=== PATIENT | male | born 1975 | race Caucasian/White ===

== ENCOUNTER 2022-04-13 15:43 | Emergency (ER) | payer MEDICAID, SELFPAY ==
[2022-04-13 15:52] VITALS: BP 146/94; PULSE 102; RESP 18; TEMP 36.7; O2SAT 95; BMI 41.3
[2022-04-13 17:02] LABS: Basophils Percent Auto 0.7 % (0.0-3.0); Eosinophils Percent Auto 0.3 % (0.0-7.0); Hematocrit 41.2 % (37.0-53.0); Hemoglobin* 13.8 gm/dL (13.5-17.5); Immature Granulocytes Abs Auto 0.01 K/uL (0.00-0.30); Lymphocytes Percent Auto 44.4 % (20-44); Mean Corpuscular HGB Conc 34 gm/dL (32-36); Mean Corpuscular Hemoglobin 30 pg (26-34); Mean Corpuscular Volume 90 fL (80-100); Monocytes Percent Auto 7.3 % (0.0-11.0); Platelet Count* 70 K/uL (140-440); RDW Coefficient of Variation % 14.9 % (11.5-15.5); Red Blood Count 4.58 m/uL (4.30-5.90); White Blood Count* 2.86 K/uL (4.50-11.00)
[2022-04-13 17:16] LABS: Slide Review Reflex No
[2022-04-13 17:21] LABS: Albumin* 4.6 g/dL (3.3-5.0); Chloride* 104 mmol/L (96-114)
[2022-04-13 17:22] LABS: Potassium* 3.8 mmol/L (3.6-5.1); Sodium* 147 mmol/L (135-149)
[2022-04-13 17:24] LABS: Alkaline Phosphatase* 62 U/L (40-150); Aspartate Amino Transferase* 283 U/L (12-35); Bilirubin Direct* 0.5 mg/dL (0.0-0.5); Bilirubin Total* 1.3 mg/dL (0.1-1.5); Blood Urea Nitrogen* 11 mg/dL (5-24); Carbon Dioxide* 23 mmol/L (20-32); Creatinine* 0.6 mg/dL (0.5-1.5); Est. Creatinine Clearance* 150.56; Estimated Glomerular Filt Rate 119 ml/min; Glucose* 85 mg/dL (60-115); Total Protein* 7.5 g/dL (6.0-8.3)
[2022-04-13 17:25] LABS: Alanine Aminotransferase* 81 U/L (4-50); Calcium* 8.3 mg/dL (8.4-10.6)
[2022-04-13 17:26] LABS: Acetaminophen* < 10.0 ug/mL (10.0-30.0); Salicylate* < 1.0 mg/dL (1.0-10)
[2022-04-13] MEDS: MULTIVITAMIN/MINERALS 1 TABLET 1 TAB PO (17:28)
[2022-04-13] MEDS: THIAMINE 100 MG TABLET PO (17:29)
[2022-04-13] MEDS: FOLIC ACID 1 MG TABLET PO (17:30)
[2022-04-13] MEDS: OLANZapine 5 MG/ML inj IVP (17:30)
[2022-04-13 17:41] LABS: PCR FLU A Negative PCR FLU A (Negative); PCR FLU B Negative PCR FLU B (Negative); PCR RSV Negative PCR RSV (Negative)
[2022-04-13 17:42] LABS: Ethanol* 0.44 % (0.01-0.03)
[2022-04-13 17:46] LABS: SARS PCR* Negative SARS-CoV-2 (Negative)
--- NOTE | 2022-04-13 17:50 | ED.NURSE ---
is wanting to sleep. is arousable. father had his glasses and now they are with him in the room.
--- NOTE | 2022-04-13 18:10 | ED.ALCOHOL ---
HPI - Alcohol General Date Seen: 04/13/22 <Delonte García MD - Last Filed: 04/13/22 21:13> Chief Complaint: Alcohol/Intoxication <Delonte García MD - Last Filed: 04/13/22 21:13> Stated Complaint: ETOH <Delonte García MD - Last Filed: 04/13/22 21:13> Time Seen by Provider: 04/13/22 16:21 <Delonte García MD - Last Filed: 04/13/22 21:13> Source: patient and family <Delonte García MD - Last Filed: 04/13/22 21:13> Mode of arrival: ambulatory <Delonte García MD - Last Filed: 04/13/22 21:13> Limitations: no limitations <Delonte García MD - Last Filed: 04/13/22 21:13> History of Present Illness HPI narrative: Patient is a 39-year-old gentleman with known alcoholic disease. He presents here with his father, to get help with his alcohol, he currently drinks a L to L and half of vodka per day. He has been through treatment a number of times in the past, and been through detox, he was requesting help from his family, and they brought him in. Here he was requesting (slow detox) in which she means he can have but does not beers slowly over the course of the day. Denies any falls recently, denies any drug use, currently is unemployed, lives with his significant other. Appears intoxicated. Denies suicidal or homicidal ideation <Delonte García MD - Last Filed: 04/13/22 21:13> MD complaint: alcohol intoxication <Delonte García MD - Last Filed: 04/13/22 21:13> Last drink: hours (ago) <Delonte García MD - Last Filed: 04/13/22 21:13> Chronic alcohol use: Yes <Delonte García MD - Last Filed: 04/13/22 21:13> Previous visits for alcohol intoxication: Yes <Delonte García MD - Last Filed: 04/13/22 21:13> Recent trauma: No <Delonte García MD - Last Filed: 04/13/22 21:13> Associated symptoms: denies other symptoms <Delonte García MD - Last Filed: 04/13/22 21:13> Treatments prior to arrival: none <Delonte García MD - Last Filed: 04/13/22 21:13> Related Data Home Medications: Home Medications Medication Instructions Recorded Confirmed losartan 50 mg tablet 50 mg PO DAILY 04/13/22 04/13/22 <Delonte García MD - Last Filed: 04/13/22 21:13> Allergies/Adverse Reactions: Allergies Allergy/AdvReac Type Severity Reaction Status Date / Time No Known Drug Allergies Allergy Verified 04/13/22 16:09 <Delonte García MD - Last Filed: 04/13/22 21:13> Review of Systems Status of ROS Reports: unobtainable due to medical condition <Delonte García MD - Last Filed: 04/13/22 21:13> Narrative Patient is intoxicated but has no complaints when I go through the 10 point review systems. <Delonte García MD - Last Filed: 04/13/22 21:13> [facility] Social History: Social History Smoking Status: Current some day smoker What tobacco products do you use: cigarettes Do you use any of these nicotine containing products: None Second hand tobacco smoke exposure: Yes How often do you have a drink containing alcohol: 4 or more times a week How many standard drinks containing alcohol do you have on a typical day: 10 or more How often do you have six or more drinks on one occasion: Daily or almost daily AUDIT-C Alcohol total score: 12 Non-prescribed substance use: denies use service: No <Delonte García MD - Last Filed: 04/13/22 21:13> Exam Narrative: Exam Narrative: Patient is seen in room 2 with his father, he is lying on his left side, is pupils equal round reactive to light his TMs are normal, is neck is supple, I do not see any evidence of any trauma over his head or neck, his chest is clear bilaterally no wheezing crackles noted heart sounds are normal, his abdomen is soft and obese there is no guarding no organomegaly. he moves all extremities independently and well, slightly slurring his words. <Delonte García MD - Last Filed: 04/13/22 21:13> Const: Vital Signs, click to edit/add: Vital Signs - 24 hr 04/13/22 15:52 04/13/22 18:35 04/13/22 18:35 Temperature 98.0 F Pulse Rate [Right Pulse Oximeter] 102 H 86 Respiratory Rate 18 12 Blood Pressure [Ri ght Upper Arm] 146/94 H 142/87 H Pulse Oximetry 95 84 L 89 Oxygen Delivery Me thod Room Air Nasal Cannula Room Air 04/13/22 19:00 04/14/22 01:44 04/14/22 03:30 Temperature Pulse Rate [Right Pulse Oximeter] 61 Respiratory Rate Blood Pressure [Ri ght Upper Arm] 132/87 Pulse Oximetry 96 94 94 Oxygen Delivery Me thod Nasal Cannula Room Air 04/14/22 05:32 Temperature Pulse Rate [Right Pulse Oximeter] 83 Respiratory Rate 20 Blood Pressure [Ri ght Upper Arm] 161/82 H Pulse Oximetry 95 Oxygen Delivery Me thod <Delonte García MD - Last Filed: 04/13/22 21:13> Vital Signs, click to edit/add: Vital Signs - 24 hr 04/13/22 15:52 04/13/22 18:35 04/13/22 18:35 Temperature 98.0 F Pulse Rate [Right Pulse Oximeter] 102 H 86 Respiratory Rate 18 12 Blood Pressure [Ri ght Upper Arm] 146/94 H 142/87 H Pulse Oximetry 95 84 L 89 Oxygen Delivery Me thod Room Air Nasal Cannula Room Air 04/13/22 19:00 04/14/22 01:44 04/14/22 03:30 Temperature Pulse Rate [Right Pulse Oximeter] 61 Respiratory Rate Blood Pressure [Ri ght Upper Arm] 132/87 Pulse Oximetry 96 94 94 Oxygen Delivery Me thod Nasal Cannula Room Air 04/14/22 05:32 Temperature Pulse Rate [Right Pulse Oximeter] 83 Respiratory Rate 20 Blood Pressure [Ri ght Upper Arm] 161/82 H Pulse Oximetry 95 Oxygen Delivery Me thod <Yaquelin Godwin MD - Last Filed: 04/14/22 07:47> Documenting provider has reviewed patient's vital signs: yes <Delonte García MD - Last Filed: 04/13/22 21:13> Common normals: no apparent distress <Delonte García MD - Last Filed: 04/13/22 21:13> General appearance: cooperative and comfortable <Delonte García MD - Last Filed: 04/13/22 21:13> Nutritional appearance: obese <Delonte García MD - Last Filed: 04/13/22 21:13> Orientation/consciousness: Yes awake, Yes oriented to person, Yes oriented to place and Yes oriented to time <Delonte García MD - Last Filed: 04/13/22 21:13> HENMT: Common normals: normocephalic, head/scalp atraumatic, hearing grossly normal bilaterally, external ears normal, EAC's normal, TM's normal bilaterally, external nose normal, nasal mucous membranes and turbinates normal, moist oral mucous membranes and oropharynx normal <Delonte García MD - Last Filed: 04/13/22 21:13> Head and scalp: normocephalic and atraumatic <Delonte García MD - Last Filed: 04/13/22 21:13> Nose: external nose normal and nasal mucous membranes and turbinates normal <Delonte García MD - Last Filed: 04/13/22 21:13> External ear: external ears normal <Delonte García MD - Last Filed: 04/13/22 21:13> External auditory canal: EAC's normal <Delonte García MD - Last Filed: 04/13/22 21:13> Tympanic membrane: TM's normal bilaterally <Delonte García MD - Last Filed: 04/13/22 21:13> Eye: Common normals: PERRL, EOMs intact bilaterally, conjunctivae normal, no scleral icterus, no papilledema, normal visual wilkes by confrontation and fundi normal bilaterally <Delonte García MD - Last Filed: 04/13/22 21:13> General eye: normal appearance of both eyes <Delonte García MD - Last Filed: 04/13/22 21:13> Conjunctiva: conjunctiva(e) normal <Delonte García MD - Last Filed: 04/13/22 21:13> Pupil: PERRL <Delonte García MD - Last Filed: 04/13/22 21:13> Direct Ophthalmoscopy: no papilledema and fundi normal bilaterally <Delonte García MD - Last Filed: 04/13/22 21:13> Neck & C-Spine: Common normals: full ROM, no lymphadenopathy, supple, no meningeal signs, no JVD and thyroid normal <Delonte García MD - Last Filed: 04/13/22 21:13> General: normal visual inspection and trachea midline <Delonte García MD - Last Filed: 04/13/22 21:13> Thyroid: thyroid normal <Delonte García MD - Last Filed: 04/13/22 21:13> Lymph: Lymphatic: no lymphadenopathy noted and no lymphedema noted <Delonte García MD - Last Filed: 04/13/22 21:13> Chest: Common normals: inspection of chest normal and palpation of chest normal <Delonte García MD - Last Filed: 04/13/22 21:13> Resp: Common normals: normal respiratory effort, no retractions, no use of accessory muscles, clear to auscultation bilaterally and percussion normal <Delonte García MD - Last Filed: 04/13/22 21:13> Effort & inspection: able to speak in complete sentences <Delonte García MD - Last Filed: 04/13/22 21:13> Auscultation: clear to auscultation bilaterally <Delonte García MD - Last Filed: 04/13/22 21:13> Percussion: percussion normal <Delonte García MD - Last Filed: 04/13/22 21:13> Cardio: Common normals: no JVD <Delonte García MD - Last Filed: 04/13/22 21:13> GI: Common normals: Normal to inspection, nondistended, normoactive bowel sounds present, soft to palpation, non-tender, no hepatosplenomegaly, no masses and no bruits <Delonte García MD - Last Filed: 04/13/22 21:13> Inspection: normal to inspection <Delonte García MD - Last Filed: 04/13/22 21:13> Palpation: soft and no hepatosplenomegaly <Delonte García MD - Last Filed: 04/13/22 21:13> : Common normals: no CVA tenderness <Delonte García MD - Last Filed: 04/13/22 21:13> Bladder/kidney exam: no CVA tenderness <Delonte García MD - Last Filed: 04/13/22 21:13> Back & Pelvis: Common normals: no CVA tenderness, thoracic and lumbar spine normal to inspection, no thoracic nor lumbar tenderness, thoraco-lumbar ROM normal and straight leg raise negative bilaterally <Delonte García MD - Last Filed: 04/13/22 21:13> Extremity: Common normals: normal to inspection, full ROM, normal capillary refill, no joint enlargement, no clubbing, cyanosis or edema, no calf tenderness and no pedal edema <Delonte García MD - Last Filed: 04/13/22 21:13> General: normal exam except as noted <Delonte García MD - Last Filed: 04/13/22 21:13> Neuro: Sensorium/orientation: awake, oriented to person, oriented to place and oriented to time <Delonte García MD - Last Filed: 04/13/22 21:13> Meningeal signs: no meningeal signs <Delonte García MD - Last Filed: 04/13/22 21:13> Course Course Hospital Course: Patient has been sleeping, he received the Zyprexa because he was the uncooperative. His blood alcohol is elevated, he will need to sleep this off, before we can make a formal assessment of this. I would suspect that as I come back and 11 hours to work as shift he will be here. And then I will take over care at that point. I have communicated this with the ER physician currently here. <Delonte García MD - Last Filed: 04/13/22 21:13> Vital Signs Vital signs: Initial Vital Signs Temperature 98.0 F 04/13/22 15:52 Temperature Source Temporal Artery Scan 04/13/22 15:52 Pulse Rate 102 H 04/13/22 15:52 Respiratory Rate 18 04/13/22 15:52 Blood Pressure 146/94 H 04/13/22 15:52 Blood Pressure Mean 111 04/13/22 15:52 Blood Pressure Position Sitting 04/13/22 15:52 Pulse Oximetry 95 04/13/22 15:52 Oxygen Delivery Method 04/13/22 15:52 Vital Signs Temperature 98.0 F 04/13/22 15:52 Pulse Rate 102 H 04/13/22 15:52 Respiratory Rate 18 04/13/22 15:52 Blood Pressure 146/94 H 04/13/22 15:52 Pulse Oximetry 95 04/13/22 15:52 Oxygen Delivery Method 04/13/22 15:52 Temperature 98.0 F 04/13/22 15:52 Pulse Rate 83 04/14/22 05:32 Respiratory Rate 20 04/14/22 05:32 Blood Pressure 161/82 H 04/14/22 05:32 Pulse Oximetry 95 04/14/22 05:32 Oxygen Delivery Method 04/14/22 03:30 <Delonte García MD - Last Filed: 04/13/22 21:13> Initial Vital Signs Temperature 98.0 F 04/13/22 15:52 Temperature Source Temporal Artery Scan 04/13/22 15:52 Pulse Rate 102 H 04/13/22 15:52 Respiratory Rate 18 04/13/22 15:52 Blood Pressure 146/94 H 04/13/22 15:52 Blood Pressure Mean 111 04/13/22 15:52 Blood Pressure Position Sitting 04/13/22 15:52 Pulse Oximetry 95 04/13/22 15:52 Oxygen Delivery Method 04/13/22 15:52 Vital Signs Temperature 98.0 F 04/13/22 15:52 Pulse Rate 102 H 04/13/22 15:52 Respiratory Rate 18 04/13/22 15:52 Blood Pressure 146/94 H 04/13/22 15:52 Pulse Oximetry 95 04/13/22 15:52 Oxygen Delivery Method 04/13/22 15:52 Temperature 98.0 F 04/13/22 15:52 Pulse Rate 83 04/14/22 05:32 Respiratory Rate 20 04/14/22 05:32 Blood Pressure 161/82 H 04/14/22 05:32 Pulse Oximetry 95 04/14/22 05:32 Oxygen Delivery Method 04/14/22 03:30 <Yaquelin Godwin MD - Last Filed: 04/14/22 07:47> MDM - Alcohol MDM Narrative Medical decision making narrative: Patient is seen and assessed, his vital signs are stable, but he is significantly intoxicated with a blood alcohol 0.44, he would be a great candidate for detox, but his blood alcohol will need to come down, we will contact the detox is in the area, at this point he will be on transport hold for sure, pending a 72 hour hold given his history of alcoholic issues. He is not suicidal nor is he homicidal, but given his poor insight into his problem, I do not think he can make his own decisions for himself. <Delonte García MD - Last Filed: 04/13/22 21:13> Patient is seen and assessed, his vital signs are stable, but he is significantly intoxicated with a blood alcohol 0.44, he would be a great candidate for detox, but his blood alcohol will need to come down, we will contact the detox is in the area, at this point he will be on transport hold for sure, pending a 72 hour hold given his history of alcoholic issues. He is not suicidal nor is he homicidal, but given his poor insight into his problem, I do not think he can make his own decisions for himself. Update 545 a.m. 04/14: Patient is awake gets up and walks to the bathroom, he is somewhat shaky but no longer intoxicated. He and I discussed options. At this time he is refusing to go to detox of any kind, declined my recommendation to do so. He denies suicidality now that he is sober. When I ask about his alcohol cessation plans, he states that he will be rejoining AA and has had this times of sobriety in the past. He declines assistance in arranging any of these options. I do give him 1 mg of oral Ativan, confirmed with him that he has no history of seizures with alcohol cessation but has gotten shaky in the past. He asks about a prescription of Ativan to have at home and I declined to do so due to the fact that he has had multiple relapses and is likely to continue drinking alcohol while on the Ativan. I discussed my reasoning and so I will only do this in a medically monitored setting. He verbalizes understanding and agreement. I again offered detox or similar treatment and he declines. I let him know that there is nothing further than we would do in the emergency department since he is no longer intoxicated and he does not wish for any further assistance. He will be discharged. Dr. Godwin <Yaquelin Godwin MD - Last Filed: 04/14/22 07:47> Medical Records Attestation: I reviewed the patient's medical records. <Yaquelin Godwin MD - Last Filed: 04/14/22 07:47> Lab Data Attestation: I reviewed the patient's lab results. <Delonte García MD - Last Filed: 04/13/22 21:13> Labs: Lab Results 04/13/22 04/13/22 04/13/22 Range/Units 16:50 16:50 16:50 WBC 2.86 L (4.50-11.00) K/uL RBC 4.58 (4.30-5.90) m/uL Hgb 13.8 (13.5-17.5) gm/dL Hct 41.2 (37.0-53.0) % MCV 90 (80-100) fL MCH 30 (26-34) pg MCHC 34 (32-36) gm/dL RDW Coeff of Patricia 14.9 (11.5-15.5) % Plt Count 70 L (140-440) K/uL Neut % (Auto) 47.0 (42.0-72.0) % Lymph % (Auto) 44.4 H (20-44) % Preble % (Auto) 7.3 (0.0-11.0) % Eos % (Auto) 0.3 (0.0-7.0) % Baso % (Auto) 0.7 (0.0-3.0) % Neut # (Auto) 1.30 L (1.7-7.0) K/uL Lymph # (Auto) 1.30 (0.90-2.90) K/uL Preble # (Auto) 0.20 (0.00-0.90) K/UL Eos # (Auto) 0.00 (0.00-0.50) K/uL Baso # (Auto) 0.00 (0.00-0.30) K/uL Abs Immat Gran (auto) 0.01 (0.00-0.30) K/uL Sodium 147 (135-149) mmol/L Potassium 3.8 (3.6-5.1) mmol/L Chloride 104 (96-114) mmol/L Carbon Dioxide 23 (20-32) mmol/L BUN 11 (5-24) mg/dL Creatinine 0.6 (0.5-1.5) mg/dL Estimated Creat Clear 150.56 Estimated GFR 119 ml/min Glucose 85 (60-115) mg/dL Calcium 8.3 L (8.4-10.6) mg/dL Magnesium 1.6 (1.5-2.6) mg/dL Total Bilirubin 1.3 (0.1-1.5) mg/dL Direct Bilirubin 0.5 (0.0-0.5) mg/dL AST 283 H (12-35) U/L ALT 81 H (4-50) U/L Alkaline Phosphatase 62 (40-150) U/L Total Protein 7.5 (6.0-8.3) g/dL Albumin 4.6 (3.3-5.0) g/dL Salicylates < 1.0 L (1.0-10) mg/dL Acetaminophen < 10.0 L (10.0-30.0) ug/mL Ethyl Alcohol 0.44 H* (0.01-0.03) % SARS-CoV-2 (PCR) Negative SARS-CoV-2 (Negative) Influenza Type A (PCR) Negative PCR FLU A (Negative) Influenza Type B (PCR) Negative PCR FLU B (Negative) RSV (PCR) Negative PCR RSV (Negative) <Delonte García MD - Last Filed: 04/13/22 21:13> Lab Results 04/13/22 04/13/22 04/13/22 Range/Units 16:50 16:50 16:50 WBC 2.86 L (4.50-11.00) K/uL RBC 4.58 (4.30-5.90) m/uL Hgb 13.8 (13.5-17.5) gm/dL Hct 41.2 (37.0-53.0) % MCV 90 (80-100) fL MCH 30 (26-34) pg MCHC 34 (32-36) gm/dL RDW Coeff of Patricia 14.9 (11.5-15.5) % Plt Count 70 L (140-440) K/uL Neut % (Auto) 47.0 (42.0-72.0) % Lymph % (Auto) 44.4 H (20-44) % Preble % (Auto) 7.3 (0.0-11.0) % Eos % (Auto) 0.3 (0.0-7.0) % Baso % (Auto) 0.7 (0.0-3.0) % Neut # (Auto) 1.30 L (1.7-7.0) K/uL Lymph # (Auto) 1.30 (0.90-2.90) K/uL Preble # (Auto) 0.20 (0.00-0.90) K/UL Eos # (Auto) 0.00 (0.00-0.50) K/uL Baso # (Auto) 0.00 (0.00-0.30) K/uL Abs Immat Gran (auto) 0.01 (0.00-0.30) K/uL Sodium 147 (135-149) mmol/L Potassium 3.8 (3.6-5.1) mmol/L Chloride 104 (96-114) mmol/L Carbon Dioxide 23 (20-32) mmol/L BUN 11 (5-24) mg/dL Creatinine 0.6 (0.5-1.5) mg/dL Estimated Creat Clear 150.56 Estimated GFR 119 ml/min Glucose 85 (60-115) mg/dL Calcium 8.3 L (8.4-10.6) mg/dL Magnesium 1.6 (1.5-2.6) mg/dL Total Bilirubin 1.3 (0.1-1.5) mg/dL Direct Bilirubin 0.5 (0.0-0.5) mg/dL AST 283 H (12-35) U/L ALT 81 H (4-50) U/L Alkaline Phosphatase 62 (40-150) U/L Total Protein 7.5 (6.0-8.3) g/dL Albumin 4.6 (3.3-5.0) g/dL Salicylates < 1.0 L (1.0-10) mg/dL Acetaminophen < 10.0 L (10.0-30.0) ug/mL Ethyl Alcohol 0.44 H* (0.01-0.03) % SARS-CoV-2 (PCR) Negative SARS-CoV-2 (Negative) Influenza Type A (PCR) Negative PCR FLU A (Negative) Influenza Type B (PCR) Negative PCR FLU B (Negative) RSV (PCR) Negative PCR RSV (Negative) <Yaquelin Godwin MD - Last Filed: 04/14/22 07:47> Discharge Plan Discharge Clinical Impression: Alcoholic intoxication <Delonte García MD - Last Filed: 04/13/22 21:13> Patient Disposition: Xfer Other <Delonte García MD - Last Filed: 04/13/22 21:13> Condition: Stable <Delonte García MD - Last Filed: 04/13/22 21:13> Instructions: Alcohol Intoxication (ED), Abuse of Alcohol (DC), At-Risk Alcohol Use (ED) <Delonte García MD - Last Filed: 04/13/22 21:13> Additional Instructions: At this time, your refusing to go to detox which is your right. You are no longer severely intoxicated and therefore can make that decision. I think it is a poor decision. As we discussed, I cannot offer Ativan to use at home because of your heavy alcohol use. I can only offer controlled substances like that to people in medically monitored settings such as hospitals, detox or emergency rooms. I have given you a dose of Ativan prior to discharge. You have let me know that you do not intend to drink at home. You have told me that you intent to set appear own alcohol treatment arrangements and do not request my help with further assistance in this. See Handout for numbers to call for detox or crisis center. <Delonte García MD - Last Filed: 04/13/22 21:13> Activity Level: No Restrictions <Delonte García MD - Last Filed: 04/13/22 21:13> No Restrictions <Yaquelin Godwin MD - Last Filed: 04/14/22 07:47> Discharge Diet: Regular <Delonte García MD - Last Filed: 04/13/22 21:13> Regular <Yaquelin Godwin MD - Last Filed: 04/14/22 07:47> Prescriptions: No Action losartan 50 mg tablet 50 mg PO DAILY Label Comments: TAKE ONE TABLET BY MOUTH EVERY DAY <Delonte García MD - Last Filed: 04/13/22 21:13> Stand Alone Forms: [facility] Info Instructions <Delonte García MD - Last Filed: 04/13/22 21:13>
[2022-04-13 18:35] VITALS: BP 142/87; PULSE 86; RESP 12; O2SAT 84; O2SAT 89
--- NOTE | 2022-04-13 18:53 | ED.NURSE ---
has been resting after zyprex 5 mg. does take off monitors-id band, pulse ox, 02. is hard to keep 02 on. sats increased to over 93% with the 02.
[2022-04-13 19:00] VITALS: BP 132/87; PULSE 61; O2SAT 96
[2022-04-13 19:08] LABS: Magnesium* 1.6 mg/dL (1.5-2.6)
[2022-04-14 01:44] VITALS: O2SAT 94
[2022-04-14 03:30] VITALS: O2SAT 94
[2022-04-14] MEDS: LORazepam 1 MG TABLET PO (05:29)
[2022-04-14 05:32] VITALS: BP 161/82; PULSE 83; RESP 20; O2SAT 95
--- NOTE | 2022-04-14 05:34 | ED.NURSE ---
0510, pt woke up, wanted to go to the restroom. Pt shaking, requesting help with skakes. pt taken to restroom via wheelchair. MD informed of pt shaking and possible DTs.
== END 2022-04-14 08:02 | disposition other institution (70) ==
PROVIDERS: Emergency Provider Family Medicine; PCP Family Medicine
DX: F10.129 Alcohol abuse with intoxication, unspecified (principal); F17.210 Nicotine dependence, cigarettes, uncomplicated; Z20.822 Contact with and (suspected) exposure to COVID-19; Y90.8 Blood alcohol level of 240 mg/100 ml or more
CPT/HCPCS: 36415; 80048; 80076; 80143; 80179; 82077; 83735; 85025; 87502; 87634; 87635; 94761; 96374; 99285; A9153; A9270; S0166

== ENCOUNTER 2023-03-23 12:54 | Emergency (ER) | payer MEDICAID, SELFPAY ==
[2023-03-23] VITALS (13 sets, daily range): BP systolic 142–162; BP diastolic 96–112; PULSE 53–58; RESP 18; TEMP 36.1; O2SAT 96–100; BMI 33.6
[2023-03-23] MEDS: 0.9 % SODIUM CHLORIDE 1000 ml 1,000 ML IV (14:08)
[2023-03-23] MEDS: hydrOXYzine pamoate 25 MG CAPSULE PO (14:08)
[2023-03-23 14:10] LABS: Basophils Absolute Auto 0.04 K/uL (0.00-0.30); Basophils Percent Auto 0.5 % (0.0-3.0); Eosinophils Absolute Auto 0.03 K/uL (0.00-0.50); Eosinophils Percent Auto 0.4 % (0.0-7.0); Hematocrit 42.8 % (37.0-53.0); Hemoglobin* 14.5 gm/dL (13.5-17.5); Immature Granulocytes Abs Auto 0.01 K/uL (0.00-0.30); Immature Granulocytes Pct Auto 0.1 %; Lymphocytes Percent Auto 31.1 % (20-44); Mean Corpuscular HGB Conc 34 gm/dL (32-36); Mean Corpuscular Hemoglobin 31 pg (26-34); Mean Corpuscular Volume 92 fL (80-100); Monocytes Percent Auto 7.1 % (0.0-11.0); Neutrophils Absolute Auto 4.88 K/uL (1.7-7.0); Neutrophils Percent Auto 60.8 % (42.0-72.0); Platelet Count* 204 K/uL (140-440); RDW Coefficient of Variation % 12.6 % (11.5-15.5); Red Blood Count 4.66 m/uL (4.30-5.90); White Blood Count* 8.03 K/uL (4.50-11.00)
[2023-03-23 14:17] LABS: Slide Review Reflex No
[2023-03-23 14:31] LABS: Albumin* 4.5 g/dL (3.3-5.0); Chloride* 105 mmol/L (96-114)
[2023-03-23 14:32] LABS: Potassium* 4.1 mmol/L (3.6-5.1); Sodium* 140 mmol/L (135-149)
[2023-03-23 14:34] LABS: Alanine Aminotransferase* 17 U/L (4-50); Alkaline Phosphatase* 42 U/L (40-150); Anion Gap 7 mEq/L (7-15); Aspartate Amino Transferase* 26 U/L (12-35); Bilirubin Total* 0.8 mg/dL (0.1-1.5); Blood Urea Nitrogen* 7 mg/dL (5-24); Carbon Dioxide* 28 mmol/L (20-32); Creatinine* 0.7 mg/dL (0.5-1.5); Est. Creatinine Clearance* 145.85; Estimated Glomerular Filt Rate 114 ml/min; Glucose* 92 mg/dL (60-115)
[2023-03-23 14:35] LABS: Calcium* 9.9 mg/dL (8.4-10.6); Magnesium* 1.8 mg/dL (1.5-2.6)
[2023-03-23 14:53] LABS: Ethanol* < 0.01 % (0.01-0.03)
[2023-03-23] MEDS: LOSARTAN POTASSIUM 50 MG TABLET PO (15:45)
--- NOTE | 2023-03-23 17:19 | ED.GENADULT ---
HPI - General Adult General Chief complaint: Chest Pain Stated complaint: chest pain Time Seen by Provider: 03/23/23 13:16 History of Present Illness HPI narrative: This is a pleasant 47-year-old gentleman who presents to the ER today with concern for hypertension, palpitations, chest tightness, hand tingling. He has a past medical history including hypertension. He supposed to be on losartan 50 mg per day. However his been off for his blood pressure medication for about the past 2 weeks due to legal and social problems. [facility] and then [facility] to a alcohol treatment program. He has not had access to his blood pressure medication during that time frame. He has been in his treatment program for a week. In terms of alcohol he does have a history of heavy alcohol use but actually has been working hard to maintain sobriety for the past several months. He has not had a episode of heavy alcohol intake in quite a few months. He has consumed alcohol on 3 days out of the past 6 weeks. Last drink was a few weeks ago. He was arrested because it was a condition of his probation to abstain entirely from alcohol. He has been in alcohol treatment for the past week. He has been experiencing fairly continuous tightness in the center, upper portion of his chest over that time. He has also had some tingling in both of his hands. He also notes that when he feels his pulse at his neck he feels skipping beats a few times a minute. When he is not palpating his pulse he is not able to feel the extra beats. He has not had any cleared dizzy spells. No fainting. He does not have any pleuritic pain. He is not short of breath. No cough. No fever. No abdominal pain. No vomiting. No shakes or tremor. No hallucinations or withdrawal symptoms. No swelling in his legs. No recent surgery. He has hypertension. He is not aware of any other cardiac risk factors. No diabetes, hyperlipidemia. No previous history of coronary disease or stents. Because of his symptoms and his high blood pressure he was referred here to the ER for evaluation. Related Data Home Medications Medication Instructions Recorded Confirmed losartan 50 mg tablet 50 mg PO DAILY 04/13/22 05/07/22 Previous Rx's Medication Instructions Recorded losartan 50 mg tablet 50 mg PO DAILY #30 tabs 03/23/23 losartan 50 mg tablet 50 mg PO DAILY #30 tabs 03/23/23 Allergies Allergy/AdvReac Type Severity Reaction Status Date / Time No Known Drug Allergies Allergy Verified 05/07/22 15:57 [facility] Social History Smoking Status: Light tobacco smoker What tobacco products do you use: cigarettes Do you use any of these nicotine containing products: None Second hand tobacco smoke exposure: Yes Non-prescribed substance use: denies use service: No Exam Narrative: Exam Narrative: Constitutional: Appears well-developed and well-nourished. Alert. Conversant. Mildly anxious. Non toxic. HENT: Head: Atraumatic. Nose: Nose normal. Mouth/Throat: Oral mucosa is clear and moist. no trismus. Pharynx normal. Tonsils symmetric. No tonsillar enlargement, erythema, or exudate. Eyes: Conjunctivae normal. EOM normal. Pupils equal, round, and reactive to light. No scleral icterus. Neck: Normal range of motion. Neck supple. No tracheal deviation present. Cardiovascular: Bradycardic, rate in the 50s, regular rhythm. No gallop. No friction rub. No murmur heard. Symmetric radial and DP artery pulses . No JVD. He has occasional PVCs on the monitor, a few times per minute. Pulmonary/Chest: Effort normal. No stridor. No respiratory distress. No wheezes. No rales. No rhonchi . No tenderness. Abdominal: Soft. Bowel sounds normal. No distension. No mass. No tenderness. No rebound. No guarding. Musculoskeletal: RUE: Normal range of motion. No tenderness. No deformity LUE: Normal range of motion. No tenderness. No deformity RLE: Normal range of motion. No edema. No tenderness. No deformity LLE: Normal range of motion. No edema. No tenderness. No deformity Lymph: No cervical adenopathy. Neurological: Alert and oriented to person, place, and time. Normal strength. CN II-VII intact. No sensory deficit. GCS eye subscore is 4. GCS verbal subscore is 5. GCS motor subscore is 6. Normal coordination Skin: Skin is warm and dry. No rash noted. No pallor. Normal capillary refill. Psychiatric: Normal mood. Anxious. Endorses stressors including recent [facility] violation leading to [facility], now in alcohol treatment. He does have a history of anxiety/insomnia for which he uses p.r.n. hydroxyzine. He does not use that every night. Const: Vital Signs, click to edit/add: Vital Signs - 24 hr 03/23/23 13:06 03/23/23 13:07 03/23/23 13:08 Temperature 96.9 F L Pulse Rate 53 L 55 L Pulse Rate [Right Pulse Oximeter] 53 L Respiratory Rate 18 Blood Pressure 143/96 H Blood Pressure [Ri ght Upper Arm] 143/96 H Pulse Oximetry 96 96 96 Oxygen Delivery Me thod Room Air 03/23/23 13:15 03/23/23 13:30 03/23/23 13:32 Temperature Pulse Rate 58 L 55 L 55 L Pulse Rate [Right Pulse Oximeter] Respiratory Rate Blood Pressure 142/100 H Blood Pressure [Ri ght Upper Arm] Pulse Oximetry 98 99 97 Oxygen Delivery Me thod 03/23/23 13:45 03/23/23 14:00 03/23/23 14:02 Temperature Pulse Rate 56 L 55 L 53 L Pulse Rate [Right Pulse Oximeter] Respiratory Rate Blood Pressure 154/104 H Blood Pressure [Ri ght Upper Arm] Pulse Oximetry 98 100 99 Oxygen Delivery Me thod 03/23/23 14:15 03/23/23 14:30 03/23/23 14:32 Temperature Pulse Rate 55 L 53 L 56 L Pulse Rate [Right Pulse Oximeter] Respiratory Rate Blood Pressure 162/112 H Blood Pressure [Ri ght Upper Arm] Pulse Oximetry 98 97 99 Oxygen Delivery Me thod 03/23/23 14:45 Temperature Pulse Rate 54 L Pulse Rate [Right Pulse Oximeter] Respiratory Rate Blood Pressure Blood Pressure [Ri ght Upper Arm] Pulse Oximetry 98 Oxygen Delivery Me thod Course Vital Signs Vital signs: Initial Vital Signs Temperature 96.9 F L 03/23/23 13:06 Temperature Source Temporal Artery Scan 03/23/23 13:06 Pulse Rate 53 L 03/23/23 13:06 Respiratory Rate 18 03/23/23 13:06 Blood Pressure 143/96 H 03/23/23 13:06 Blood Pressure Mean 111 H 03/23/23 13:06 Blood Pressure Position Sitting 03/23/23 13:06 Pulse Oximetry 96 03/23/23 13:06 Oxygen Delivery Method Room Air 03/23/23 13:06 Vital Signs Temperature 96.9 F L 03/23/23 13:06 Pulse Rate 53 L 03/23/23 13:06 Respiratory Rate 18 03/23/23 13:06 Blood Pressure 143/96 H 03/23/23 13:06 Pulse Oximetry 96 03/23/23 13:06 Oxygen Delivery Method Room Air 03/23/23 13:06 Temperature 96.9 F L 03/23/23 13:06 Pulse Rate 54 L 03/23/23 14:45 Respiratory Rate 18 03/23/23 13:06 Blood Pressure 162/112 H 03/23/23 14:32 Pulse Oximetry 98 03/23/23 14:45 Oxygen Delivery Method Room Air 03/23/23 13:06 Medical Decision Making MDM Narrative Medical decision making narrative: This patient presents to the ER today for evaluation of chest pain this been continuing for the past week or so, also feeling palpitations from time to time, also tingling in his hands. Also concerned that his blood pressure is elevated and he does not have access to his blood pressure medications in his current alcohol treatment program. He needs a prescription from a doctor to get his blood pressure med.. Differential was broad. No evidence of palpitations, syncope or other cardiac dysrhythmia. We considered possible ACS, however workup with EKG and troponin is negative. HEART score is 2. Given time since onset of symptoms, I do not think the patient needs to be admitted for further sets of enzymes. EKG shows no evidence for pericarditis. Clinical presentation not suggestive of myocarditis. Lung sounds are clear. No wheezing or bronchospasm. No exam findings to suggest pneumonia, pneumothorax, pleural effusion. No evidence for rales to suggest pulmonary edema. The patient has no ripping or tearing pain through to the back and has symmetric pulses on exam, no other acute neuro findings so I doubt aortic dissection. Risk of radiation and contrast exposure would outweigh the benefit of CT angiogram. We considered PE for this patient. Overall very low risk with bradycardia, normal oxygen sat. Low risk by PERC. No wheezing or bronchospasm to suggest COPD/asthma. No signs of chest wall cellulitis, shingles, injury. He is also concerned about elevated blood pressure. There is a history of hypertension in the past. No concerning symptoms of chest pain , severe headache, neurologic deficits. The workup here is negative and the patient does not have any clinical, laboratory, ecg or historical signs of end-organ dysfunction. There is no signs of hypertensive emergency or urgency. Supportive outpatient management is therefore indicated with close follow-up of primary care physician. Given data obtained here in ED, started back on losartan 50 mg daily (his previous med) for therapy at this time and encouraged serial blood pressure monitoring at home to aid primary in decision making regarding hypertension. With reasonable clinical confidence, I think the patient is safe for outpatient follow up. Discussed return precautions. Questions answered. Patient voices comfort with the plan. Lab Data Labs: Lab Results 03/23/23 Range/Units 13:10 WBC 8.03 (4.50-11.00) K/uL RBC 4.66 (4.30-5.90) m/uL Hgb 14.5 (13.5-17.5) gm/dL Hct 42.8 (37.0-53.0) % MCV 92 (80-100) fL MCH 31 (26-34) pg MCHC 34 (32-36) gm/dL RDW Coeff of Patricia 12.6 (11.5-15.5) % Plt Count 204 (140-440) K/uL Neut % (Auto) 60.8 (42.0-72.0) % Lymph % (Auto) 31.1 (20-44) % [place] % (Auto) 7.1 (0.0-11.0) % Eos % (Auto) 0.4 (0.0-7.0) % Baso % (Auto) 0.5 (0.0-3.0) % Neut # (Auto) 4.88 (1.7-7.0) K/uL Lymph # (Auto) 2.50 (0.90-2.90) K/uL [place] # (Auto) 0.60 (0.00-0.90) K/UL Eos # (Auto) 0.03 (0.00-0.50) K/uL Baso # (Auto) 0.04 (0.00-0.30) K/uL Abs Immat Gran (auto) 0.01 (0.00-0.30) K/uL Imm/Tot Granulo (auto) 0.1 % Sodium 140 (135-149) mmol/L Potassium 4.1 (3.6-5.1) mmol/L Chloride 105 (96-114) mmol/L Carbon Dioxide 28 (20-32) mmol/L Anion Gap 7 (7-15) mEq/L BUN 7 (5-24) mg/dL Creatinine 0.7 (0.5-1.5) mg/dL Estimated Creat Clear 145.85 Estimated GFR 114 ml/min Glucose 92 (60-115) mg/dL Calcium 9.9 (8.4-10.6) mg/dL Magnesium 1.8 (1.5-2.6) mg/dL Total Bilirubin 0.8 (0.1-1.5) mg/dL AST 26 (12-35) U/L ALT 17 (4-50) U/L Alkaline Phosphatase 42 (40-150) U/L Total Protein 8.0 (6.0-8.3) g/dL Albumin 4.5 (3.3-5.0) g/dL Ethyl Alcohol < 0.01 L (0.01-0.03) % POC Troponin I 0.00 L (0.01-0.04) ng/ml ECG Data Attestation: I personally reviewed and interpreted this ECG as follows: Interpretation: Sinus bradycardia . Rate 51 ME 136 QRS axis normal axis. No pathologic Q-waves. ST segment/T wave: No ST segment elevation or depression. QTc: 420 Discharge Plan Discharge Clinical Impression: Frequent PVCs, Atypical chest pain Patient Disposition: Home, Self-Care Condition: Stable Instructions: Chest Pain (ED), Hypertension (ED), Premature Ventricular Contractions (ED) Prescriptions: New losartan 50 mg tablet 50 mg PO DAILY Qty: 30 0RF losartan 50 mg tablet 50 mg PO DAILY Qty: 30 0RF No Action losartan 50 mg tablet 50 mg PO DAILY Patient Comments: TAKE ONE TABLET BY MOUTH EVERY DAY Follow Up/Referrals: Provider,Not a Local [Primary Care Provider] - Stand Alone Forms: [facility] [employer] / [email or web address] Info Instructions
== END 2023-03-23 15:46 | disposition home or self-care (01) ==
PROVIDERS: Emergency Provider Emergency Medicine
DX: I49.3 Ventricular premature depolarization (principal); R07.89 Other chest pain
CPT/HCPCS: 36415; 80053; 82077; 83735; 84484; 85025; 96360; 99284; A9270; J7030